=== PATIENT | female | born 1980 ===

== ENCOUNTER 2018-11-12 08:39 | Emergency (ER) | payer OTHER ==
[2018-11-12 08:54] VITALS: BP 115/76; PULSE 80; RESP 18; TEMP 98.4; O2SAT 98
--- NOTE | 2018-11-12 09:28 | ED PDOC ---
Arrival/HPI - General Chief Complaint: Abnormal Skin Integrity Historian: Patient - History of Present Illness Narrative History of Present Illness (Text): 11/12/18 09:05 37 year old female, with no significant past medical history presents to the emergency department complaining of left-sided lip and facial swelling for the past few days. Patient has been applying Abreva to upper lip with little change. Patient denies any difficulty moving mouth or difficulty swallowing. She denies any vision change and denies increase of pain with movement of eye. Patient denies any fever, chills, chest pain, shortness of breath, nausea, vomiting, diarrhea, urinary symptoms, back pain, neck pain, headache, dizziness, or any other complaints. PMD: None Time/Duration: Other (few days) Symptom Onset: Gradual Symptom Course: Unchanged Activities at Onset: Light Context: Home Past Medical History - Provider Review Nursing Documentation Reviewed: Yes - Psychiatric Hx Substance Use: No - Surgical History Hx Section: Yes Family/Social History - Physician Review Nursing Documentation Reviewed: Yes Family/Social History: No Known Family HX Smoking Status: Never Smoked Hx Alcohol Use: No Hx Substance Use: No Allergies/Home Meds Allergies/Adverse Reactions: Allergies Penicillins Allergy (Verified 11/12/18 08:54) CONGESTION Sulfa (Sulfonamide Antibiotics) Allergy (Verified 11/12/18 09:27) CONGESTION Review of Systems - Physician Review All systems were reviewed & negative as marked: Yes - Review of Systems Constitutional: absent: Fevers, Other (chills) Eyes: absent: Vision Changes Respiratory: absent: SOB Cardiovascular: absent: Chest Pain Gastrointestinal: absent: Diarrhea, Nausea, Vomiting Genitourinary Female: absent: Dysuria, Frequency, Hematuria Musculoskeletal: absent: Back Pain, Neck Pain Skin: Other (left-sided lip and facial swelling ) Neurological: absent: Headache, Dizziness Physical Exam Vital Signs Reviewed: Yes Vital Signs Temp Pulse Resp BP Pulse Ox 11/12/18 08:52 98.4 F 80 18 115/76 98 Temperature: Afebrile Blood Pressure: Normal Pulse: Regular Respiratory Rate: Normal Appearance: Positive for: Well-Appearing, Non-Toxic, Comfortable Pain Distress: None Mental Status: Positive for: Alert and Oriented X 3 - Systems Exam Head: Present: Atraumatic, Normocephalic, Other (Mild erythema and swelling noted to the left cheek area) Pupils: Present: PERRL Extroacular Muscles: Present: EOMI Conjunctiva: Present: Normal Mouth: Present: Other (Herpetic lesion to the left upper lip. ) Neck: Present: Normal Range of Motion Respiratory/Chest: Present: Clear to Auscultation, Good Air Exchange. No: Respiratory Distress, Accessory Muscle Use Cardiovascular: Present: Regular Rate and Rhythm, Normal S1, S2. No: Murmurs Abdomen: No: Tenderness, Distention, Peritoneal Signs Back: Present: Normal Inspection Upper Extremity: Present: Normal Inspection. No: Cyanosis, Edema Lower Extremity: Present: Normal Inspection. No: Edema Neurological: Present: GCS=15, CN II-XII Intact, Speech Normal Skin: Present: Warm, Dry, Normal Color. No: Rashes Psychiatric: Present: Alert, Oriented x 3, Normal Insight, Normal Concentration Medical Decision Making ED Course and Treatment: 11/12/18 09:25 Impression: 37 year old female presents complaining of left-sided lip and facial swelling for the past few days. Plan: -- disposition Progress Notes: 11/12/18 09:29 Patient is in no acute distress. I have discussed the plan with the patient, who expresses understanding. Patient in agreement with plan to be discharged home. Patient is stable for discharge. Patient was instructed to follow up with physician or return if symptoms worsen or new concerning symptoms arise. - Scribe Statement The provider has reviewed the documentation as recorded by the Marina Desouza Provider Scribe Attestation: All medical record entries made by the Romeoibcaryn were at my direction and personally dictated by me. I have reviewed the chart and agree that the record accurately reflects my personal performance of the history, physical exam, medical decision making, and the department course for this patient. I have also personally directed, reviewed, and agree with the discharge instructions and disposition. Disposition/Present on Arrival - Present on Arrival Any Indicators Present on Arrival: No History of DVT/PE: No History of Uncontrolled Diabetes: No Urinary Catheter: No History of Decub. Ulcer: No History Surgical Site Infection Following: None - Disposition Have Diagnosis and Disposition been Completed?: Yes Diagnosis: Cellulitis Disposition: HOME/ ROUTINE Disposition Time: 09:15 Condition: GOOD Discharge Instructions (ExitCare): Cellulitis (ED) Print Language: BULGARIAN Additional Instructions: JASPER M NORRIS MORILLA, thank you for letting us take care of you today. The emergency medical care you received today was directed at your acute symptoms. If you were prescribed any medication, please fill it and take as directed. It may take several days for your symptoms to resolve. Return to the Emergency Department if your symptoms worsen, do not improve, or if you have any other problems. Please contact your doctor or call one of the physicians/clinics you have been referred to that are listed on the Patient Visit Information form that is included in your discharge packet. Bring any paperwork you were given at discharge with you along with any medications you are taking to your follow up visit. Our treatment cannot replace ongoing medical care by a primary care provider outside of the emergency department. [facility] to be part of your care today. Follow up with the clinic next week for re-evaluation and further management. JASPER MELVIN, katherine por dejarnos cuidar de carrie matute. La atencin mdica de emergencia que recibi hoy se dirigi a orestes sntomas agudos. Si le recetaron algn medicamento, llnelo y tmelo segn las indicaciones. Los sntomas pueden tardar varios jonas en resolverse. Regrese al Departamento de Emergencias si orestes sntomas empeoran, no mejoran o si tiene otros problemas. Comunquese con wilkerson mdico o llame a cecilia de los mdicos / clnicas a los que feng sido referido que figuran en el formulario de Informacin de visita al paciente que se incluye en wilkerson paquete de uday. Lleve todos los documentos que le entregaron al momento del uday junto con todos los medicamentos que est tomando para wilkerson visita de seguimiento. Nuestro tratamiento no puede reemplazar la atencin mdica continua por un proveedor de atencin primaria fuera del departamento de emergencias. Katherine por permitir que el equipo de [facility] sea parte de wilkerson atencin hoy. Kirill un seguimiento con la clnica la prxima semana para reevaluar y administrar ms. Prescriptions: Acyclovir 5 gm TP BID #1 cream..g. Clindamycin [Cleocin] 300 mg PO Q6 #28 cap Referrals: [facility] [Outside] - Follow up with primary Sara Haider MD [Medical Doctor] - Follow up with primary Forms: [facility] ([place])
== END 2018-11-12 09:36 | disposition home or self-care (01) ==
LOC: ED 08:39
DX: L03.211 Cellulitis of face (principal)